=== PATIENT | male | born 1995 | race Hispanic/Latino ===

== ENCOUNTER 2022-11-13 12:54 | Emergency (ER) | payer SELFPAY ==
[~2022-11-13] VITALS: Ht 167.6 cm; Wt 77.0 kg
[2022-11-13] MEDS ORDERED: NAPROXEN500 MG PO (14:48)
[2022-11-13 16:19] VITALS: BP 141/91
[2022-11-13 16:30] VITALS: BP 134/92
[2022-11-13] MEDS ORDERED: HYDROCO/APAP1 TA9 PO (16:55)
[2022-11-13] MEDS ORDERED: KEFLEX500 MG PO (16:55)
[2022-11-13 17:00] VITALS: BP 144/92
[2022-11-13 17:04] VITALS: BP 144/92
== END 2022-11-13 17:23 | disposition home or self-care (01) | DRG 563 ==
LOC: ED 12:54
PROC: 0HQNXZZ Repair Left Foot Skin, External Approach (ICD-10-PCS; principal; 2022-11-13)
DX: S92.422B Displaced fracture of distal phalanx of left great toe, initial encounter for open fracture (principal); W20.8XXA Other cause of strike by thrown, projected or falling object, initial encounter